=== PATIENT | female | born 1975 | race Two or more races ===

== ENCOUNTER 2018-12-10 09:48 | Outpatient (CLI) | payer OTHER | END 2018-12-10 09:56 | disposition home or self-care (01) | LOC: SONOGRAMA 09:48 | DX: E04.2 Nontoxic multinodular goiter (principal) ==

== ENCOUNTER 2019-04-29 11:15 | Emergency (ER) | payer OTHER ==
[~2019-04-29] VITALS: Ht 170.2 cm; Wt 87.1 kg
== END 2019-04-29 14:28 | disposition home or self-care (01) ==
LOC: ER 11:15
DX: S90.02XA Contusion of left ankle, initial encounter (principal); S60.221A Contusion of right hand, initial encounter; W18.39XA Other fall on same level, initial encounter; Y93.89 Activity, other specified; Y92.488 Other paved roadways as the place of occurrence of the external cause; Y99.8 Other external cause status

== ENCOUNTER 2019-06-05 17:51 | Emergency (ER) | payer OTHER ==
[~2019-06-05] VITALS: Ht 170.2 cm; Wt 89.8 kg
[2019-06-05] MEDS ORDERED: LEVSIN/SL0.125 MG (18:43)
[2019-06-05] MEDS ORDERED: PROTONIX40 MG (18:43)
[2019-06-05] MEDS ORDERED: ZOFRAN8 MG (18:43)
== END 2019-06-06 00:43 | disposition home or self-care (01) ==
LOC: ER 17:51
DX: K29.70 Gastritis, unspecified, without bleeding (principal); R11.2 Nausea with vomiting, unspecified; E86.0 Dehydration